=== PATIENT | female | born 1940 | race Two or more races ===

== ENCOUNTER 2016-03-29 17:03 | Emergency (ER) | payer MEDICARE, OTHER ==
[~2016-03-29] VITALS: Ht 162.6 cm; Wt 54.4 kg
[~2016-03-29 17:03] MED LIST: COLON HERBAL C1 EACH PO; ZOCOR20 MG ORAL; ZOLPIDEM TARTRAT5 MG ORAL; [UNRECOGNIZED DRUG - OTHER]
[2016-03-29 17:05] VITALS: BP 0/0
[2016-03-29] MEDS ORDERED: EPINEPHrine 1mg/10ml carp IV ONE (17:26)
[2016-03-29] MEDS ORDERED: Sodium Bicarbonate 8.4% 50ml Carp ONE (17:26)
[2016-03-29] MEDS ORDERED: Amiodarone 150mg/ml 3ml Amp ONE (17:26)
[2016-03-29 21:29] VITALS: BP 0/0
--- NOTE | 2016-03-31 14:10 | Emergency Room Report ---
History of Present Illness General Chief Complaint: CPR Source: Family Member, Medical Record Present Illness HPI 75-year-old female presents to ED in cardiac arrest. Patient intubated in the field, CPR in progress upon arrival. Per EMS patient had gone to PMD today stating she was not feeling well. Has had chest pain x2 weeks because of a mechanical trip and fall, landing on her chest. Patient is seen her PMD and has been to the [facility] emergency room with workups which were negative. In doctor's office today patient became suddenly cyanotic and passed out. Patient had no pulse. CPR started and 911 was called. Patient is unable to provide any history at this time. Daughter is at bedside and she documented history that brought the patient here Allergies: Coded Allergies: PREGABALIN (Unverified Allergy, Unknown, 03/29/16) Patient History Past Medical History: HTN Pertinent Family History: none Social History: Denies: alcohol use, drug use, smoking Last Menstrual Period: 0 Now: No Immunizations: UTD Reviewed Nursing Documentation: PMH: Agreed, PSxH: Agreed Nursing Documentation-PMH Past Medical History: No History, Except For Hx Hypertension: Yes - cataract surgery, hystrectom Hx Cancer: No Review of Systems All Other Systems: limited Physical Exam Vital Signs Date Time Temp Pulse Resp B/P Pulse Ox O2 Delivery O2 Flow Rate FiO2 03/29/16 16:57 0 0 0/0 0 Sp02 EP Interpretation: reviewed, abnormal General Appearance: other - unresponsive Head: normocephalic Eyes: bilateral eye other - fixed pupil ENT: normal ENT inspection Neck: normal inspection Respiratory: other - Intubated Cardiovascular #1: other - No pulse Gastrointestinal: normal inspection Rectal: deferred Genitourinary: no CVA tenderness Musculoskeletal: normal inspection Neurologic: other - Unresponsive Psychiatric: other - Unresponse Skin: normal inspection Lymphatic: normal inspection Procedures Critical Care Time Critical Care Time i. I feel this is a highly complex case requiring extensive working including EKG/Rhythm strip, Xray/CT/US, Blood/urine lab work, repeat exams while in ED, and administration of strong opiates/narcotics for pain control, admission to hospital or close patient follow up. Total time: 30 min bedside evaluation and treatment excludes procedures (EKG). Reason for critical care: Cardiac arrest Possible complications: hypotension, hypertension, CA, shock, arrhythmias, metabolic acidosis, end organ damage, respiratory failure. Interventions: CPR, ACLS medications, Accu-Chek, calcium, bicarbonate. Defibrillation. Bedside ultrasound Course: Patient brought in cardiac arrest. No pulse. CPR in progress. Intubated in the field . Accu-Chek normal. Patient given epi x3 prior to arrival. Patient given all to rounds of epinephrine, calcium, bicarbonate. Patient had a few episodes instructed her fibrillation. Patient was shocked multiple times. Given amiodarone. Patient went back into asystole. Prognosis poor. Discussed with family. Resuscitative efforts terminated. Patient expires Consultations: nursing staff, EMS, family Performed by: Dr Ortiz Tolerated well condition = j. because of unstable vital signs this patient had a condition that could potentially threaten life or limb. I feel this is a critical patient who required my full attention while patient was considered critical. Total Critical Care Time excluding procedures was greater than 35 minutes Cardioversion Cardioversion: Consent: Emergent Indication: Other - Ventricular fibrillation Type: Desynchonis Response: Other - V. fib Attempts: Other - Multiple Patient Tolerated: Poor Complications: Other - patient CPR/Code Blue CPR/Code Blue Narrative Patient brought in cardiac arrest. No pulse on arrival. Patient intubated prior to arrival. Patient given epi x3 prior to arrival. Patient continued epinephrine, given calcium and bicarbonate. Accu-Chek within normal limits. Patient had a few runs of ventricular fibrillation. Shocked multiple times. Given amiodarone without improvement. Patient returned back to asystole. Despite multiple rounds of ACLS patient remains without pulse. Poor prognosis discussed with family. They agreed to terminate efforts. Patient expires Medical Decision Making Diagnostic Impression: Primary Impression: For cardiopulmonary resuscitation ER Course Patient brought in cardiac arrest. Patient seen by PMD and [facility] emergency room in the past week secondary to chest pain after having a fall Differential - CA, ventricular fibrillation, pneumothorax, PE No pulse on arrival. Patient intubated prior to arrival. Patient given epi x3 prior to arrival. Patient continued epinephrine, given calcium and bicarbonate. Accu-Chek within normal limits. Patient had a few runs of ventricular fibrillation. Shocked multiple times. Given amiodarone without improvement. Patient returned back to asystole. Despite multiple rounds of ACLS patient remains without pulse. Poor prognosis discussed with family. They agreed to terminate efforts. Patient expires Last Vital Signs Date Time Temp Pulse Resp B/P Pulse Ox O2 Delivery O2 Flow Rate FiO2 03/29/16 21:29 0 0 0/0 0 Status: worsened Disposition: Condition: Referrals: NOT CHOSEN MARTINEZ/,REFERRING (PCP) FERMIN ORTIZ M.D. Mar 31, 2016 14:10
== END 2016-03-29 20:45 | disposition expired ==
LOC: EDBD 17:03 → EMR 17:25
DX: I46.9 Cardiac arrest, cause unspecified (principal); I49.01 Ventricular fibrillation; I10 Essential (primary) hypertension
CPT/HCPCS: 92950; 99285; J0171; J0282